=== PATIENT | female | born 1990 | race Caucasian/White ===

== ENCOUNTER 2019-01-03 19:40 | Emergency (ER) | payer MEDICAID ==
[~2019-01-03] VITALS: Ht 149.9 cm; Wt 57.2 kg
[2019-01-03 19:50] VITALS: BP 145/95
--- NOTE | 2019-01-03 22:34 | NUR ---
PT AMBULATED TO ER BED 08
--- NOTE | 2019-01-03 22:45 | NUR ---
PT BIB SELF C/O LEFT ARM TINGLING AND CHEST PAIN YESTERDAY. PT DENIES N/V/D; SKIN IS INTACT, PINK/WARM/DRY; AAOX4, PERRL, WITH EVEN AND STEADY GAIT; LUNGS CLEAR BL, BREATHING UNLABORED; HR EVEN AND REGULAR, BL PERIPHERAL PULSES PRESENT; BS ACTIVE X4, NO TENDERNESS TO PALPATION, NO HEPATOSPLENOMEGALLY PALPATED, RESONANT TO PERCUSSION; PT DENIES ANY FEVER, CP, SOB, OR COUGH AT THIS TIME; PT STATES 5/10 TINGLING, PAIN TO LEFT ARM; VSS; PATIENT POSITIONED FOR COMFORT; HOB ELEVATED; BEDRAILS UP X1; BED DOWN. ER MD MADE AWARE OF PT STATUS. PMH: DENIES RX: DENIES
[2019-01-03 23:02] LABS: BASOPHILS % (AUTO) 0.3 % (0.0-2.0); EOSINOPHILS # (AUTO) 0.1 K/uL (0-0.4); EOSINOPHILS % (AUTO) 0.9 % (0.0-4.0); HEMATOCRIT 39.2 % (36-48); HEMOGLOBIN 12.7 g/dL (12.0-16.0); LYMPHOCYTES % (AUTO) 27.9 % (20.5-51.1); MEAN CORPUSCULAR HEMOGLOBIN 27 pg (27-31); MEAN CORPUSCULAR HGB CONC 32 g/dL (33-37); MEAN CORPUSCULAR VOLUME 81.8 fL (80-94); MONOCYTES # (AUTO) 0.5 K/uL (0.8-1.0); MONOCYTES % (AUTO) 7.3 % (1.7-9.3); NEUTROPHILS # (AUTO) 4.6 K/uL (1.8-7.7); NEUTROPHILS % (AUTO) 63.6 % (42.2-75.2); PLATELET COUNT (AUTO) 235 K/uL (140-450); WHITE BLOOD COUNT (AUTO) 7.2 K/uL (4.8-10.8)
[2019-01-03 23:11] LABS: ANION GAP 12.3 (8-16); CARBON DIOXIDE 27.3 mmol/L (21-32); CREATININE 0.7 mg/dL (0.6-1.3); POTASSIUM 3.6 mmol/L (3.5-5.1)
[2019-01-03 23:16] LABS: ALBUMIN 4.1 g/dL (3.4-5.0); TOTAL BILIRUBIN 0.3 mg/dL (0.0-1.0)
[2019-01-03 23:42] VITALS: BP 129/90
--- NOTE | 2019-01-03 23:42 | NUR ---
Patient discharged with v/s stable. Written and verbal after care instructions given and explained. Patient verbalized understanding. Ambulatory with steady gait. All questions addressed prior to discharge. Advised to follow up with PMD.
== END 2019-01-03 23:42 | disposition home or self-care (01) ==
LOC: MED 19:40
DX: F41.9 Anxiety disorder, unspecified (principal); R07.2 Precordial pain; K21.9 Gastro-esophageal reflux disease without esophagitis
CPT/HCPCS: 36415; 71045; 80053; 83690; 84484; 85025; 93005; 99284; Q0092